=== PATIENT | female | born 1985 | race Two or more races ===

== ENCOUNTER 2025-04-07 16:26 | Emergency (ER) | payer OTHER ==
[~2025-04-07] VITALS: Ht 167.6 cm; Wt 68.9 kg
[~2025-04-07 16:26] MED LIST: PEPCID20 MG; REGLAN 10ML5 MG/ML; ZOFRAN4 MG
[2025-04-07] MEDS ORDERED: ONDANSETRON HCL 2 MG/ML VIAL IM STA (18:51)
[2025-04-07] MEDS ORDERED: BENZONATATE 200 MG CAPSULE PO STA (18:51)
[2025-04-07 20:53] LABS: BASO % 0.2 % (0.1-1.2); EOS # 0.01 (0.04-0.54); EOS % 0.2 % (0.7-7.0); LYMPH # 1.63 (1.18-3.74); LYMPH % 35.7 % (19.3-53.1); MEAN PLATELET VOLUME 11.70 fl (9.4-12.4); MONO # 0.43 (0.24-0.82); MONO % 9.4 % (4.7-12.5); NEUT # 2.49 (1.56-6.13); NEUT % 54.5 % (34.0-71.1); RED CELL DISTRIBUTION WIDTH 12.8 % (11.6-14.4)
[2025-04-07 21:09] LABS: ALT/SGPT 29.0 U/L (12-78); AST/SGOT 41.0 U/L (15-37); BILIRUBIN TOTAL 0.23 mg/dL (0.3-1.2); BUN CREA RATIO 8.0 (7.0-25.0); CREATININE SERUM 0.92 mg/dL (0.55-1.02); GFR 68.32; GLOBULINA 3.9 G/DL (2.4-3.5); GLUCOSE FASTING 125.0 mg/dL (65-100); OSMOLALITY SERUM 277.0 MOSM/KG (275-295)
[2025-04-07 21:48] LABS: COVID-19 AG NEGATIVE (NEGATIVE)
[2025-04-07] MEDS ORDERED: OSEL75CA PO (21:58)
[2025-04-07] MEDS ORDERED: GILTUSS HONEY118 ML PO (21:58)
== END 2025-04-07 21:55 | disposition home or self-care (01) ==
LOC: ER 16:26
PROVIDERS: Emergency Medicine
DX: J10.1 Influenza due to other identified influenza virus with other respiratory manifestations (principal); Z20.822 Contact with and (suspected) exposure to COVID-19